=== PATIENT | male | born 1965 | race Caucasian/White ===

== ENCOUNTER 2025-01-20 13:20 | Outpatient (AMB) | payer MEDICARE, SELFPAY ==
[2025-01-20 13:42] VITALS: BP 127/88; PULSE 91; RESP 19; TEMP 36.3; O2SAT 96; BMI 37.9
--- NOTE | 2025-01-20 13:42 | ORTHONT_ITS ---
Vital signs 01/20/25 13:42 Height 1.78 m Height Method Stated Weight 119.89 kg Weight Measurement Method Standing Scale BMI 37.9 BP 127/88 H Blood Pressure Source Automatic Cuff Blood Pressure Location Right Upper Arm Position Sitting Respiration 19 Pulse 91 Pulse Source Monitor Temp 97.3 F Temp Source Temporal Artery Scan Pulse Oximetry (%) 96 Oxygen Delivery Method Room Air Med/Allergies Allergies & Medications Allergies acetaminophen (From Percocet) Allergy (Severe, Verified 01/20/25 13:43) TACHYCARDIA oxycodone (From Percocet) Allergy (Severe, Verified 01/20/25 13:43) TACHYCARDIA hydrocodone (From Vicodin) Allergy (Mild, Verified 01/20/25 13:43) ITCHNESS Medication Reconciliation metformin 500 mg tablet 500 mg PO QDAY 01/20/25 [History Confirmed 01/20/25] morphine 30 mg capsule,extended release 24 hr multiphase 30 mg PO Q24H 01/20/25 [History Confirmed 01/20/25] semaglutide 0.25 mg or 0.5 mg (2 mg/1.5 mL) subcutaneous pen injector (Ozempic) 0.25 mg subcut QWEEK 01/20/25 [History Confirmed 01/20/25] Exam Exam Patient is in no acute distress and is cooperative with the examination today. Breathing is nonlabored. In no respiratory distress. Patient has no paraspinal tenderness. Spinal deformity cannot be appreciated. The gait of the patient is nonantalgic Bilateral extremities were evaluated and demonstrates sensation intact to light touch. Palpable pedal pulses are present. No significant edema is present. Bilateral knees were examined and the patient has full strength and range of motion.. The right hip was examined. Patient was able to flex to 90 degrees, adduct to 30 degrees, abduct to 40 degrees, internally rotate to 5 degrees, and externally rotate to 20 degrees. Patient has a negative logroll. Stinchfield is negative. The patient is nontender diffusely to touch. The left hip was examined. Patient was able to flex to 90 degrees, adduct to 30 degrees, abduct to 40 degrees, internally rotate to 0 degrees, and externally rotate to 20 degrees. He has a positive Stinchfield and logroll Assessment and Plan Problem List (1) Bilateral hip joint arthritis: Status: Acute Plan: Patient is a pleasant 59-year-old male with a history of bilateral hip arthritis. He is still functioning reasonably well. His x-rays are extremely old and he only has MRIs in the system. I would like to get hip x-rays and we can discuss different treatment options depending on what that shows Plan We did get x-rays. 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 We discussed continued nonoperative treatment as the pain is not bothering him too much. We discussed we can do cortisone injections should the pain increase. Office Procedures GNS Level of Care Nursing/Assessment Patient Status: Established Patient Nursing Assessment/Reassesment: Medication Reconciliation, Update PMH in EMR and Vital Signs Coordination of Care: Complex Care and Chronic Disease 1-5, Education Complex Pt/Fam, Consent,records obtained, informed consent, Lab and Imaging orders, Results/Orders obtained and Staff clarify orders Established Patient Charge Established Patient Point Assignment: 110 Established Patient Point Charge: EP Level 3 (80-115) MA Intake Visit Data Collection New Patient or Established: New Patient (never been to [facility]) Reason for Visit:: HIP PAIN Seen by Clinical Staff ONLY (RN/MA): No Verbal consent obtained for Telemed visit?: No [employer] Forms Required: No PCP or OBGYN visit in last 3 months: Yes Hx Now: No Do You Feel Safe at Home: Yes Authorities Contacted: N/A Questionairres Past Medical History Past Medical History Have you ever been diagnosed with any of the following: Respiratory Problems Smoking: No Smoking Cessation Counseling: No Smoking Exposure: No Stomache/Intestinal Problems Obesity: Yes Endocrine Problems Diabetes Mellitus Type 1: Yes Subjective Visit Visit for: new patient and hip Immunization / Flu Flu Vaccine in the Last 12 Months: No Flu Vaccine Exclusion Criteria: No Exclusion Criteria History of Present Illness Chief complaint: Bilateral hip pain Date of injury / onset of symptoms: LAURA Lopez is a pleasant 59-year-old male with left greater than right hip pain. Pain is in the buttocks and radiates to the groin. This been ongoing for several years. He reports the pain is starting to get worse. He reports he is still functioning reasonably well. He is able to walk about 2 miles a day Personal History Red flag PMH: BMI BMI Counceling provided: Yes Pain Pain level (0-10): 5 Pain duration: COMES AND GOES Pain location: inside (medial), outside (lateral), anterior and posterior Pain quality: sharp, dull and aching Pain timing: increases with activity Associated signs & symptoms: stiffness Ambulatory data Ambulatory device: none Treatments Improvement with previous injections: No Improvement with PT: No Improvement with NSAIDS: no Review of Systems Review of Systems: All systems negative unless otherwise noted in HPI.
--- NOTE | 2025-01-20 13:50 | XR_ITS ---
Examination: Bilateral hips, AP pelvis, 5 views Technique: AP, lateral views both hips, AP pelvis, 5 views Exam date and time: January 20, 2025 1400 hours INDICATIONS: Pelvic and hip pain beginning 3 years ago. FINDINGS: Moderate bilateral hip osteoarthritis No hip or pelvic fracture No avascular necrosis IMPRESSION: Moderate bilateral hip osteoarthritis
== END 2025-01-20 14:43 | disposition home or self-care (01) ==
LOC: HODSRG 13:20
PROVIDERS: PCP Family Medicine; Referring Provider Family Medicine; Supervising Provider Orthopaedic Surgery Adult Reconstructive Orthopaedic Surgery; Visit Provider Orthopaedic Surgery Adult Reconstructive Orthopaedic Surgery
DX: M16.0 Bilateral primary osteoarthritis of hip (principal); M25.852 Other specified joint disorders, left hip; M25.851 Other specified joint disorders, right hip
CPT/HCPCS: 73522; 99213; G0463